=== PATIENT | female | born 2000 | race Caucasian/White ===

== ENCOUNTER 2019-04-28 11:16 | Emergency (ER) | payer OTHER ==
[~2019-04-28] VITALS: Ht 157.5 cm; Wt 58.0 kg
[2019-04-28 11:44] LABS: BASO % 0.5 % (0.0-1.0); EOS % 0.7 % (0.0-3.0); HEMATOCRIT 41.7 % (36.0-47.0); HEMOGLOBIN 14.3 g/dl (12.0-15.5); LYMPH # 1.8 10^3/uL (1.5-5.0); LYMPH % 30.7 % (24.0-44.0); MEAN CORPUSCULAR HEMOGLOBIN 31.4 pg (27.0-33.0); MEAN CORPUSCULAR HGB CONC 34.3 g/dl (32.0-36.5); MEAN CORPUSCULAR VOLUME 91.4 fl (80.0-96.0); MONO # 0.5 10^3/uL (0.0-0.8); MONO % 7.5 % (0.0-5.0); NEUTROPHILS # 3.6 10^3/uL (1.5-8.5); NEUTROPHILS % 60.3 % (36.0-66.0); PLATELET COUNT, AUTOMATED 258 10^3/uL (150-450); RED BLOOD COUNT 4.56 10^6/uL (4.00-5.40)
[2019-04-28 12:23] LABS: BLOOD UREA NITROGEN 14 MG/DL (7-18); CALCIUM LEVEL 9.4 MG/DL (8.5-10.1); CARBON DIOXIDE LEVEL 24 MEQ/L (21-32); CHLORIDE LEVEL 107 MEQ/L (98-107); CREATININE FOR GFR 0.77 MG/DL (0.55-1.30); GLUCOSE, FASTING 78 MG/DL (70-100); HCG, SERUM QUANTITATIVE 75 MIU/ML; POTASSIUM SERUM 3.8 MEQ/L (3.5-5.1); SODIUM LEVEL 139 MEQ/L (136-145)
[2019-04-28 13:16] LABS: GLUCOSE, URINE (UA) MANUAL NEGATIVE (NEGATIVE)
[2019-04-28 13:17] LABS: BILIRUBIN, URINE MANUAL NEGATIVE (NEGATIVE); KETONE, URINE MANUAL NEGATIVE (NEGATIVE); UROBILINOGEN, URINE MANUAL NORMAL (NORMAL)
[2019-04-28 13:18] LABS: RBC, URINE TNTC /hpf (0-3)
[2019-04-28 13:20] LABS: BACTERIA, URINE SMALL AMOUNT; OTHER SEDIMENT, URINE OCCASIONAL CLUE CELL; SQUAMOUS EPITHELIAL CELL URINE LARGE AMOUNT /hpf (SMALL AMT)
[2019-04-28 13:42] VITALS: BP 125/74
[2019-04-28 13:46] LABS: HYALINE CAST, URINE NONE SEEN /lpf (0-1)
== END 2019-04-28 13:42 | disposition home or self-care (01) ==
LOC: M ED 11:16
DX: O20.0 Threatened abortion (principal); Z3A.00 Weeks of gestation of pregnancy not specified

== ENCOUNTER 2020-02-08 17:19 | Inpatient (IN) | payer OTHER ==
[~2020-02-08] VITALS: Ht 165.1 cm; Wt 74.4 kg
[2020-02-08] MEDS ORDERED: PRENTAB9 PO (17:52)
[2020-02-08 18:04] VITALS: BP 103/58
[2020-02-08] MEDS ORDERED: LACTATED RINGER'S 1000 ML IV ONE (19:00)
[2020-02-08] MEDS ORDERED: miSOPROStol 50 MCG 1/2 TAB (S0191) PO ONE (19:00)
[2020-02-08 19:27] VITALS: BP 107/61
[2020-02-08 19:30] LABS: BASO % 0.2 % (0.0-1.0); EOS % 0.2 % (0.0-3.0); HEMATOCRIT 33.4 % (36.0-47.0); HEMOGLOBIN 10.9 g/dl (12.0-15.5); LYMPH # 1.6 10^3/uL (1.5-5.0); LYMPH % 18.2 % (24.0-44.0); MEAN CORPUSCULAR HEMOGLOBIN 29.1 pg (27.0-33.0); MEAN CORPUSCULAR HGB CONC 32.6 g/dl (32.0-36.5); MEAN CORPUSCULAR VOLUME 89.3 fl (80.0-96.0); MONO # 0.6 10^3/uL (0.0-0.8); MONO % 6.9 % (0.0-5.0); NEUTROPHILS # 6.4 10^3/uL (1.5-8.5); PLATELET COUNT, AUTOMATED 226 10^3/uL (150-450); RED BLOOD COUNT 3.74 10^6/uL (4.00-5.40); WHITE BLOOD COUNT 8.6 10^3/uL (4.0-10.0)
[2020-02-08] MEDS: LR 1,000 ML IV SCH (20:37)
[2020-02-09] VITALS (57 sets, daily range): BP systolic 102–145; BP diastolic 55–91
[2020-02-09] MEDS ORDERED: OXYTOCIN DRIP 30 UNITS in IV 1 EA IV SCH (00:30)
[2020-02-09] MEDS ORDERED: FENTANYL 2MCG/ML ROPIVACAINE 0.2% IN 0.9% NACL 100ML IVBAG As Ordered ONE (04:42)
[2020-02-09] MEDS ORDERED: EPIDURAL COMMENT XX SCH (04:50)
[2020-02-09] MEDS ORDERED: diphenhydrAMINE 50MG/ML VIAL (J1200) IV PRN ×2 (04:50→19:45)
[2020-02-09] MEDS ORDERED: REFRIGERATOR IV KEYS XX PRN (04:50)
[2020-02-09] MEDS ORDERED: ePHEDrine SULFATE 25 MG/5 ML(5MG/ML) SYRINGE IV PRN (04:50)
[2020-02-09] MEDS ORDERED: NALOXONE INJ 0.4MG/1ML VIAL (J2310 PER 1MG) IV PRN (04:50)
[2020-02-09] MEDS ORDERED: ONDANSETRON 4MG/2ML VIAL IV PRN ×2 (04:50→19:45)
[2020-02-09] MEDS ORDERED: LACTATED RINGER'S 1000 ML IV PRN (04:50)
[2020-02-09] MEDS ORDERED: EPIDURAL/PCA KEYS XX PRN (04:50)
[2020-02-09] MEDS: LR 1,000 ML IV SCH (06:39)
[2020-02-09] MEDS: FENTANYL/ROPIVACAINE/NACL BAG 100 ML EPIDURAL SCH ×2 (06:40→13:26)
--- NOTE | 2020-02-09 11:55 | IPNPDOC ---
Obstetrical Progress Note Date of Service Feb 09, 2020 Subjective Patient reports feeling ok. Reports epidural isn't working as strongly on her right side but she is overall comfortable. Objective Vital Signs Date Time Temp Pulse Resp B/P (MAP) Pulse Ox O2 Delivery O2 Flow Rate FiO2 02/09/20 06:58 96.7 54 18 129/65 (86) Assessment Heart Rate (FHR): 135 Variability: Moderate Accelerations: None Decelerations: Variable (when attempting to reposition, otherwise no decels) Heart Rate Tracing: Category II Tocometer Contractions: Yes Frequency: every 1-3 min. Sterile Vaginal Examination Dilation: 5 cm Effacement (%): 80% Station: -1 Cervical Consistency: Soft Cervical Position: Anterior Postion/Presentation: Cephalic presentation Assessment and Plan Status: Reassuring Group B Streptococcus: Negative Anticipate: Vaginal Delivery Additional Comments 19yo at 41+1wks admitted for IOL for late term gestation. Patient has progressed on cytotec and pitocin when she was AROM'd at 3cm at 0403 notable for clear fluid. Pitocin was at 4mU/min when it was turned off for late and variable decels. She was rechecked 2hrs later and found to make change from 3cm to 5cm. Ctx's started to space to 7min apart and therefore pitocin protocol restarted at 0950. FHRT notable to be cat I unless patient is on her right side when variable decels develop. Repeat SVE at 1145 showed no cervical change at 5/80/-1 with caput and asynclitism noted. Will attempt to reposition and continue pitocin protocol as tolerance allows. Will continue to closely monitor for expectant , however, patient counseled on concern for possible need for section if intolerance develops. Patient acknowledged understanding. All questions answered. NARGIS SNOW DO Feb 09, 2020 11:55
--- NOTE | 2020-02-09 13:45 | IPNPDOC ---
Obstetrical Progress Note Date of Service Feb 09, 2020 Subjective Patient endorses constant pelvic pressure. Objective Vital Signs Date Time Temp Pulse Resp B/P (MAP) Pulse Ox O2 Delivery O2 Flow Rate FiO2 02/09/20 06:58 96.7 54 18 129/65 (86) Assessment Heart Rate (FHR): 150 Variability: Moderate Accelerations: None Decelerations: None Heart Rate Tracing: Category I Tocometer Contractions: Yes Frequency: every 2-2 min. Sterile Vaginal Examination Dilation: 9 cm Effacement (%): 100% Station: +1 Cervical Consistency: Soft Cervical Position: Anterior Postion/Presentation: Cephalic presentation Assessment and Plan Status: Reassuring Group B Streptococcus: Negative Anticipate: Vaginal Delivery Additional Comments FHRT Cat I. Pitocin at 2mU/min. SVE 9/c/+1. Patient has made remarkable cervical change. Will continue to monitor for expectant . NARGIS SNOW DO Feb 09, 2020 13:45
[2020-02-09] MEDS ORDERED: ceFAZolin 2 GM/D5W 50 ML IV BAG (J0690 PER 500MG) As Ordered ONE (17:58)
[2020-02-09] MEDS ORDERED: AZITHROMYCIN INJ 500MG VIAL (J0456 PER 500MG) As Ordered ONE (17:58)
[2020-02-09] MEDS ORDERED: BICITRA 30ML SOLN UDC As Ordered ONE (17:59)
[2020-02-09] MEDS ORDERED: LIDOCAINE 2% W/EPINEPHRINE 20ML VIAL **PRES FREE As Ordered ONE (18:04)
[2020-02-09] MEDS ORDERED: OXYTOCIN 30 UNITS IN 0.9% NaCl 500ML IV BAG (J2590) As Ordered ONE (18:04)
[2020-02-09] MEDS ORDERED: MORPHINE PRES-FREE INJ 10 MG/10 ML VIAL (J2274) As Ordered ONE (18:04)
--- NOTE | 2020-02-09 18:08 | IPNPDOC ---
Obstetrical Progress Note Date of Service Feb 09, 2020 Subjective Patient reports feeling significant pain in her hips and back with ctx's and pushing. Patient reports feeling exhausted with pushing stating "I can't do it anymore." Objective Vital Signs Date Time Temp Pulse Resp B/P (MAP) Pulse Ox O2 Delivery O2 Flow Rate FiO2 02/09/20 13:20 98.4 131 18 103/74 (84) Assessment Heart Rate (FHR): 180 Variability: Minimal Accelerations: None Decelerations: None Heart Patterns: Tachycardia Heart Rate Tracing: Category II Tocometer Contractions: Yes Frequency: every 2-5 min. Sterile Vaginal Examination Dilation: complete Effacement (%): 100% Station: +1 Cervical Consistency: Soft Cervical Position: Anterior Postion/Presentation: Cephalic presentation Assessment and Plan Status: Non-reassuring Group B Streptococcus: Negative Anticipate: Section Additional Comments Patient has been pushing for 1.5hrs after laboring down for 30 minutes. Patient has made no descent of head at +1 station with caput appreciated. tachycardia has developed in the last 30 minutes now at 180bpm with minimal variability, no decels or accels. Pitocin turned off. Given cat II FHRT and no descent, recommendation to proceed with section. Patient counseled on r/b/a/i of surgery with written consents reviewed and signed. Ancef 2gm, Azithromycin 500mg, and Bicitra enroute to OR. OR team notified. NARGIS SNOW DO Feb 09, 2020 18:08
[2020-02-09] MEDS ORDERED: ACETAMINOPHEN 1000MG 100ML IV BTL (OFIRMEV) (J0131 PER 10MG) As Ordered ONE (18:35)
[2020-02-09 18:43] LABS: CORD GAS ABE V -5.3; CORD GAS HCO3 V 19.6 MEQ/L; CORD GAS O2 SAT V 42.9 %; CORD GAS PCO2 V 36.9 mmHg; CORD GAS PH V 7.344 UNITS; CORD GAS PO2 V 20.3 mmHg; CORD GAS SBC V 18.8 MEQ/L; CORD GAS TCO2 V 20.8 MEQ/L
[2020-02-09 18:44] LABS: CORD GAS ABE A -7.4; CORD GAS HCO3 A 20.1 MEQ/L; CORD GAS O2 SAT A 55.3 %; CORD GAS PCO2 A 47.9 mmHg; CORD GAS PH A 7.241 UNITS; CORD GAS PO2 A 26.9 mmHg; CORD GAS SBC A 17.5 MEQ/L; CORD GAS TCO2 A 21.6 MEQ/L
--- NOTE | 2020-02-09 19:23 | POST-OPPD ---
Postoperative Procedure Note Date Of Procedure: Feb 09, 2020 Time Of Procedure: 18:19 PREOPERATIVE DIAGNOSIS: 1.) 41+1 weeks gestation 2.) Arrest of descent 3.) Nonreassuring heart rate POSTOPERATIVE DIAGNOSIS: 1.) 41+1 weeks gestation 2.) Arrest of descent 3.) Nonreassuring heart rate 4.) Meconium 5.) Cephalopelvic disproportion FINDINGS: Female in cephalic, LOP presentation with significant caput, APGARS 8/9, Meconium fluid. Left 3cm peritubal cyst, Normal bilateral ovaries, right fallopian tube and uterus. Tight ischial spines and narrow pubic arch concerning for cephalopelvic disproportion. PROCEDURE: Primary low transverse section SURGEON: Dr. Nargis Snow DO WINDOW ASSEMBLER: Dr. Tabitha MD ANESTHESIA: Epidural SPECIMENS: Left peritubal cyst ESTIMATED BLOOD LOSS: 400ml REPLACED: 1100ml DRAINS: 50ml urine COMPLICATIONS: None POSTOPERATIVE CONDITION: Stable NARGIS SNOW DO Feb 09, 2020 19:23
[2020-02-09] MEDS ORDERED: oxyCODONE 5MG TAB PO PRN (19:45)
[2020-02-09] MEDS ORDERED: fentaNYL 100 MCG/2 ML INJECTION (J3010) As Ordered ONE (19:58)
[2020-02-09] MEDS: fentaNYL 100 MCG/2 ML INJECTION (J3010) IV PRN ×4 (20:03→20:29)
[2020-02-10] VITALS (7 sets, daily range): BP systolic 106–142; BP diastolic 61–84
--- NOTE | 2020-02-10 05:15 | IPNPDOC ---
Progress Note Date of Service: Feb 10, 2020 Day#: 1 Progress Note SUBJECT: Deanne is a 19-year-old 3 now Para 1021 status post uncomplic ated spontaneous vaginal delivery at 41+1/7 weeks. She has been ambulating, voiding spontaneously without issue and tolerating regular diet. She report she is and it is going ok but is struggling to latch on right breast. Reports lochia is decreasing. Reports pain is well-controlled on current pain meds. OBJECTIVE: VITAL SIGNS: Within normal limits, afebrile. Alert and oriented times three. No exaggerated respiratory effort appreciated Well-perfused Abdomen: Fundus firm at U-2. Soft, NTTP. Incision: c/d/i with dressing in place Scant lochia on peripad Extremities without edema, no calf tenderness ASSESSMENT: Deanne is a 19-year-old 3 now Para 1021 status post uncomplicated spontaneous vaginal delivery at 41+1/7 weeks after IOL for late term gestation. Patient doing well on day 1. Vitals within normal limits, afebrile, hemodynamically stable with no evidence of infection. PLAN: 1. Discharge to home tomorrow. 2. Continue current pain mgmt - will discontinue all IV meds due to no IV access 3. Encourage breast feeding with consultation PRN 4. Encourage regular diet and ambulation OOB as tolerated 5. Follow up visit in 2 weeks in clinic. 6. Discussed return precautions at length. VS, I&O, 24H, Fishbone Vital Signs/I&O Vital Signs Date Time Temp Pulse Resp B/P (MAP) Pulse Ox O2 Delivery O2 Flow Rate FiO2 02/10/20 03:00 97.3 76 20 142/84 (103) 99 Room Air I&O- Last 24 Hours up to 6 AM 02/10/20 06:00 Intake Total 2581.9 ml Output Total 1715 ml Balance 866.9 ml Laboratory Data 24H LABS Laboratory Tests 2 02/09/20 18:33: Cord Arterial Blood pH 7.241, Cord Arterial Blood PCO2 47.9, Cord Arterial Blood PO2 26.9, Cord Arterial Blood HCO3 20.1, Cord Arterial Blood Total CO2 21.6, Cord Arterial Blood Base Excess -7.4, Cord Arterial Base Excess (Standard 17.5, Cord Arterial Bld Oxygen Saturation 55.3, Cord Venous Blood pH 7.344, Cord Venous Blood PCO2 36.9, Cord Venous Blood PO2 20.3, Cord Venous Blood HCO3 19.6, Cord Venous Blood Total CO2 20.8, Cord Venous Base Excess (Actual) -5.3, Cord Venous Base Excess (Standard) 18.8, Cord Venous Blood Oxygen Saturation 42.9 NARGIS SNOW DO Feb 10, 2020 05:15
[2020-02-10 07:02] LABS: HEMATOCRIT 27.4 % (36.0-47.0); HEMOGLOBIN 9.3 g/dl (12.0-15.5); MEAN CORPUSCULAR HEMOGLOBIN 30.1 pg (27.0-33.0); MEAN CORPUSCULAR HGB CONC 33.9 g/dl (32.0-36.5); MEAN CORPUSCULAR VOLUME 88.7 fl (80.0-96.0); PLATELET COUNT, AUTOMATED 175 10^3/uL (150-450); RED BLOOD COUNT 3.09 10^6/uL (4.00-5.40); WHITE BLOOD COUNT 13.7 10^3/uL (4.0-10.0)
[2020-02-11 02:00] VITALS: BP 122/68
[2020-02-11 06:00] VITALS: BP 127/83
--- NOTE | 2020-02-11 06:29 | IPNPDOC ---
Progress Note Date of Service: Feb 11, 2020 Day#: 2 Progress Note SUBJECT: Deanne is a 19-year-old 3 now Para 1021 status post PLTCS for arrest of descent at 41+1/7 weeks. She has been ambulating, voiding spontaneously without issue and tolerating regular diet. She report she is and it is going well with assistance. Reports lochia is decreasing. Reports pain is well-controlled on current pain meds. OBJECTIVE: VITAL SIGNS: Within normal limits, afebrile. Alert and oriented times three. No exaggerated respiratory effort appreciated Well-perfused Abdomen: Fundus firm at U-2. Soft, NTTP. Incision: c/d/i, dressing removed Scant lochia on peripad Extremities without edema, no calf tenderness ASSESSMENT: Deanne is a 19-year-old 3 now Para 1021 status post uncomplicated PLTCS for arrest of descent at 41+1/7 weeks after IOL for late term gestation. Patient doing well on day 2. Vitals within normal limits, afebrile, hemodynamically stable with no evidence of infection. PLAN: 1. Discharge to home today. 2. Continue current pain mgmt 3. Encourage breast feeding with consultation PRN 4. Encourage regular diet and ambulation OOB as tolerated 5. Follow up visit in 2 weeks in clinic. 6. Discussed return precautions at length. VS, I&O, 24H, Fishbone Vital Signs/I&O Vital Signs Date Time Temp Pulse Resp B/P (MAP) Pulse Ox O2 Delivery O2 Flow Rate FiO2 02/11/20 06:00 97.7 83 16 127/83 (98) 02/11/20 02:00 98 Room Air I&O- Last 24 Hours up to 6 AM 02/11/20 06:00 Intake Total 640 ml Output Total 1225 ml Balance -585 ml Laboratory Data 24H LABS Laboratory Tests 2 02/10/20 06:28: Nucleated Red Blood Cells % (auto) 0.0 CBC/BMP Laboratory Tests 02/10/20 06:28 NARGIS SNOW DO Feb 11, 2020 06:29
--- NOTE | 2020-02-12 20:07 | HPE ---
DATE OF ADMISSION: 02/08/2020 HISTORY OF PRESENT ILLNESS: 19-year-old 3, para 0, abortio 2, LMP 04/27/2019, EDC 02/01/2020 at 41 weeks of gestation for induction of labor. PAST HISTORY: 2019 had a spontaneous , chemically induced. Had another spontaneous in 2019 with D and C. LABS: O positive. HIV Negative. Hep negative. RPR negative. Rubella immune. Varicella immune. Urine negative. Gonorrhea and Chlamydia are negative. One hour glucose 117. GBS is negative. COVID is negative. PHYSICAL EXAMINATION: On examination, no acute distress, symphysis fundus height is 40, vertex OT, category 1 strip, minus 3 station, 50% effaced, soft, posterior, fingertip. Blood pressure is 103/58, respirations 18, pulse 100, temperature 98.0. Urine is not available. The rest of the examination unremarkable. Normocephalic, atraumatic. Neck full range of motion. Pupils equal and reactive to light. Distal pulses are symmetric. No evidence of DVT, PE, or superficial phlebitis. Chest is clear bilateral bases. No wheeze or rhonchi. No CVA tenderness. Abdomen is soft, symphysis fundus height is appropriate. No rashes, lesions, or pruritus. No arthralgia or myalgia. No complaints of joint pain. No cough, wheeze, shortness of breath, or dyspnea on exertion. No bleeding. Neuro complete. No incontinence, urgency, or frequency. No nausea, vomiting, diarrhea, or constipation. No heat or cold sensitivity. No diabetic issues. No MANAGER INSIDE issues. No abnormal paps. The patient is under 21. No STDs. PAST MEDICAL AND SURGICAL: Unremarkable. FAMILY HISTORY: Noncontributory. SOCIAL HISTORY: She quit smoking at the beginning of the . No alcohol. No drug abuse. She is to a solder. No domestic violence and good support systems. ASSESSMENT: We discussed the consent for vaginal delivery which is through the vagina with a possibility of use of vacuum or forceps to delivery if needed for maternal and indications. These are devices that can assist with vaginal delivery with normal pushing efforts cannot achieve delivery on their own or when delivery is needed in an emergency for babys well-being. Medication used to induce or augment labor may help you achieve a vaginal delivery. An episiotomy may be required to help the baby deliver vaginally and may also require repair of any lacerations, tears to the vagina or vulva that are caused by delivery. In some cases emergencies arise that require emergency section that are done specifically for or maternal indications and will be discussed with your provider prior to continuation. delivery is through the abdomen with an incision and in some situations it may be safer for the mother and baby than continuing labor and again, it is only performed for clinical indications. Risks of vaginal delivery including but not limited to bleeding, infection, injury to vagina, pelvic structures, injury to baby, damage to the uterus, reaction to anesthesia, uterine rupture, risks of hysterectomy for life threatening bleeding issues, augmentation of labor may increase risk of infection, uterine tachy systole, uterine rupture, heart rate abnormalities, need for emergency section or possible hysterectomy because of life threatening bleeding situations or even , increase in perineal vaginal laceration may occur, risk of injury to bowel or bladder or incontinence, injury to the baby with bruising, scratches, hematomas to the head or intracranial bleed. The patient expressed understanding of the issues. We had a 25 minute discussion. All questions were answered. Safe to proceed. CHLOÉD
--- NOTE | 2020-02-12 20:10 | IPN ---
DATE: 02/09/2020 SUBJECTIVE: This lady is a 19-year-old 3, para 0, who was admitted at 41 and 1 week of gestation for induction of labor. She had 1 Cytotec by mouth 50 mcg, had some contractions intermittently, category 1 strip and intermittently low baseline with minimal variability. PHYSICAL EXAMINATION: She was examined, found to be about 3-4 cm, soft, 50% effaced, -2 station, OT. An ARM was done draining clear liquid. Strip improved. PLAN: Patient is planning on having an epidural, safe to proceed. Patient is GBS negative. MTDD
--- NOTE | 2020-02-12 21:34 | ROOPDOC ---
[facility] Report Of Operation Report of Operation PREOPERATIVE DIAGNOSIS: 1.) 41+1 weeks gestation 2.) Arrest of descent 3.) Nonreassuring heart rate POSTOPERATIVE DIAGNOSIS: 1.) 41+1 weeks gestation 2.) Arrest of descent 3.) Nonreassuring heart rate 4.) Meconium 5.) Cephalopelvic disproportion FINDINGS: Female in cephalic, LOP presentation with significant caput, APGARS 8/9, Meconium fluid. Left 3cm peritubal cyst, Normal bilateral ovaries, right fallopian tube and uterus. Tight ischial spines and narrow pubic arch concerning for cephalopelvic disproportion. PROCEDURE: Primary low transverse section SURGEON: Dr. Nargis Snow DO ROCKET ENGINE MECHANIC: Dr. Tabitha MD ANESTHESIA: Epidural SPECIMENS: Left peritubal cyst ESTIMATED BLOOD LOSS: 400ml REPLACED: 1100ml DRAINS: 50ml urine COMPLICATIONS: None POSTOPERATIVE CONDITION: Stable PROCEDURE NOTE: 19yo at 41+1wks admitted for induction for late term gestation. Patient made cervical change to c/c/+1 and commenced pushing. After 1.5 hours of pushing, no descent of head was appreciated and previous cat I heart rate tracing was now cat II for tachycardia with minimal variability. Patient counseled on recommendation for section. She was counseled on the risks, benefits, alternatives, and indications for surgery, acknowledged understanding and desired to proceed with written consents signed. DESCRIPTION OF PROCEDURE: The risks, benefits, indications and alternatives of the procedure were reviewed with the patient and informed consent was obtained. The patient was taken to the operating room where epidural anesthesia was found to be adequate. She was then prepped and draped in the normal, sterile fashion in the dorsal supine position with a leftward tilt. A Pfannenstiel skin incision was then made with the scalpel and carried through to the underlying layer of fascia. The fascia was incised in the midline and the incision extended laterally with blunt dissection. Rectus muscles were then at the midline; the peritoneum identified, tented up, and entered with bluntly. The peritoneal incision was then extended horizontally/superiorly with good visualization of the bladder. The Mobius self-retaining retractor was then introduced into the abdomen. The vesicouterine peritoneum was then identified and incised with the scalpel and a bladder flap made with blunt dissection. Next, the lower uterine segment was incised in a transverse fashion with the scalpel. The amniotic sac was artificially ruptured, productive of meconium fluid. The uterine incision was then extended manually in a superior-lateral fashion. The bladder blade was removed and was found to be in cephalic, LOP presentation. Baby was delivered without difficulty through the hysterotomy site. The cord was then doubly clamped and cut. The was handed off to the waiting pediatricians. The placenta was then removed spontaneously with gently traction on the umbilical cord. The uterus was then cleared of all clots and debris and the uterine incision was repaired with 0-monocryl in a running, locked fashion. A s econd layer of 0-monocryl was then used to embricate the hysterotomy site in a vertical fashion. The Mobius retractor was removed and the hysterotomy was again noted to be hemostatic. The fascia was reapproximated with 0-vicryl in a running/non-locking fashion. The subcutaneous tissue was reapproximated with three interrupted sutures of 3-0 vicryl. The skin was closed with 4-0 monocryl in a subcuticular fashion. The incision was then dressed and a pressure dressing applied. At the completion of the case, bimanual exam performed with good uterine tone and minimal vaginal bleeding. The patient tolerated the procedure well. Sponge, lap and needle counts were correct times three. The patient was taken to the recovery room in stable condition. NARGIS SNOW DO Feb 09, 2020 19:32
== END 2020-02-11 12:45 | disposition home or self-care (01) | DRG 773 ==
LOC: M LDI 17:19 → M OBS 02-09 20:55
PROVIDERS: ADMIT Obstetrics & Gynecology
PROC: 3E0P7GC Introduction of Other Therapeutic Substance into Female Reproductive, Via Natural or Artificial Opening (ICD-10-PCS; 2020-02-08)
PROC: 10907ZC Drainage of Amniotic Fluid, Therapeutic from Products of Conception, Via Natural or Artificial Opening (ICD-10-PCS; 2020-02-09)
PROC: 0UB60ZX Excision of Left Fallopian Tube, Open Approach, Diagnostic (ICD-10-PCS; 2020-02-09)
PROC: 10D00Z1 Extraction of Products of Conception, Low, Open Approach (ICD-10-PCS; principal; 2020-02-09 18:21)
DX: O48.0 Post-term pregnancy (principal); Z3A.41 41 weeks gestation of pregnancy; O76 Abnormality in fetal heart rate and rhythm complicating labor and delivery; O64.0XX0 Obstructed labor due to incomplete rotation of fetal head, not applicable or unspecified; O77.0 Labor and delivery complicated by meconium in amniotic fluid; O65.8 Obstructed labor due to other maternal pelvic abnormalities; Z37.0 Single live birth; N83.8 Other noninflammatory disorders of ovary, fallopian tube and broad ligament; O26.893 Other specified pregnancy related conditions, third trimester